=== PATIENT | female | born 2005 | race Two or more races ===

== ENCOUNTER 2025-08-30 12:02 | Observation (INO) | payer SELFPAY ==
[2025-08-30] MEDS ORDERED: PREN-96 PO (12:53)
--- NOTE | 2025-08-31 09:53 | DVHDS2 ---
Physician Discharge Progress N Final Diagnosis: abd pain 34 wks Operations or Procedures: Operations or Procedures nst reactive reviwed,sono Condition on Discharge: Good Disposition: Home Discharge Instructions: Diet: Regular Activity: No Restrictions, As Tolerated Medications: na Follow Up Care: Specialist: 2d Discharge Statement: "Patient was advised to return to the ER or call 911 if any headaches, dizziness, shortness of breath, chest pain, abdominal pain, bleeding, fevers, or worsening of medical condition. Patient was counseled about treatment plan, medications, possible side effects, patientverbalized understanding. All questions were answered to the best of my ability. This discharge took greater then 30 minutes in planning, reviewing docu mentation, counseling the patient, and discussing with other team members." Visit Coding OBGYN Date of Service: Aug 30, 2025 Billing Provider: JACKELIN MORRIS DO EMPLOYEE RELATIONS CONSULTANT Common Visit Codes: 15430-[facility]BS [facility]ARE (HIGH) EMPLOYEE RELATIONS CONSULTANT Procedure Codes: 19829-16- NON-STRESS TEST JACKELIN MORRIS DO Aug 31, 2025 09:53
== END 2025-08-30 13:12 | disposition home or self-care (01) ==
LOC: LDRP 12:02
PROVIDERS: ADMIT Obstetrics & Gynecology; ATTEND Obstetrics & Gynecology
DX: O26.893 Other specified pregnancy related conditions, third trimester (principal); R10.9 Unspecified abdominal pain; Z3A.34 34 weeks gestation of pregnancy; Z98.890 Other specified postprocedural states
CPT/HCPCS: 59025; 81002; 94760; G0378